=== PATIENT | female | born 1985 | race Caucasian/White ===

== ENCOUNTER 2016-03-08 18:54 | Emergency (ER) | payer OTHER ==
[~2016-03-08] VITALS: Ht 154.9 cm; Wt 64.7 kg
[~2016-03-08 18:54] MED LIST: ALUM5LIQ PO; RANI150 PO
[2016-03-08 19:16] VITALS: BP 115/80; PULSE 71; RESP 16; TEMP 98.3; O2SAT 99
[2016-03-08] MEDS ORDERED: PREN29TA PO (19:24)
[2016-03-08] MEDS ORDERED: AMOX500T PO (19:57)
--- NOTE | 2016-03-08 20:06 | PD ---
HPI Chief Complaint: Oral / Dental Pain or Problem Time Seen by Provider: 19:57 Travel History International Travel<30 days: No Contact w/Intl Traveler<30days: No Traveled to known affect area: No History of Present Illness HPI 30-year-old female presents to the emergency room for evaluation of right lower dental pain since this morning. Patient reports chronic history of dental problems dating back 5 years but has not ever been able to go to the dentist because of finances. He states this morning she had an abscess burst in her mouth which she spat out and then rinse her mouth out with hydrogen peroxide. Patient denies fever, chills, nausea, and vomiting. PFSH Past Medical History Medical History: Denies Significant Hx Immunizations Current: Yes Tetanus Vaccination: Unknown Influenza Vaccination: No ?: LMP: ULTRA SOUND 7WKS Past Surgical History Section: Yes (x 1) Social History Alcohol Use: No Tobacco Use: No Substance Use: No Allergies-Medications (Allergen,Severity, Reaction): Coded Allergies: No Known Allergies (Unverified , 03/08/16) Reported Meds & Prescriptions Reported Meds & Active Scripts Active Reported Plus Iron 29-1 mg ( Vit-Iron Carbonyl) 1 Tab Tab 1 Tab PO DAILY Review of Systems Except as stated in HPI: all other systems reviewed are Neg Physical Exam Narrative GENERAL: Well-nourished, well-developed female in no acute distress. Afebrile. Ambulatory. SKIN: Warm and dry. HEAD: Normocephalic. EYES: No scleral icterus. No injection or drainage. DENTAL: Severe decay throughout. There is moderate erythema surrounding tooth # 32. No obvious abscess. No noticeable drainage. No submental, submandibular, or buccal induration. No loose or chipped teeth. No malocclusion. NECK: Supple, trachea midline. No JVD or lymphadenopathy. CARDIOVASCULAR: Regular rate and rhythm without murmurs, gallops, or rubs. RESPIRATORY: Breath sounds equal bilaterally. No accessory muscle use. Data Data Last Documented VS Vital Signs Date Time Temp Pulse Resp B/P Pulse Ox O2 Delivery O2 Flow Rate FiO2 03/08/16 19:16 98.3 71 16 115/80 99 MDM Medical Decision Making Medical Screen Exam Complete: Yes Emergency Medical Condition: Yes Medical Record Reviewed: Yes Differential Diagnosis Dentalgia versus gingivitis versus dental decay Narrative Course 30-year-old 7 weeks female presents to the emergency room for evaluation of dental pain and drainage since this morning. Patient reports chronic dentalgia but has never been able to get to the dentist because of insurance reasons. Physical exam reveals severe decay throughout. There is moderate erythema surrounding tooth #32. No obvious abscess. No noticeable drainage. No submental, submandibular, or buccal induration. Vital signs stable. Patient will be discharged with prescription for amoxicillin, category B, and told to follow-up with her dentist or return for worsening symptoms. She understands and agrees to plan. Diagnosis Primary Impression: Dental abscess Referrals: Dentist Patient Instructions: Dental Abscess (ED), General Instructions Additional Instructions: Rest and drink plenty of fluids. [place] your teeth twice daily. Amoxicillin as directed, until gone. Follow-up with a dentist. Return to the emergency room for worsening symptoms. Med/Other Pt SpecificInfo: Prescription(s) given Scripts Amoxicillin 500 Mg [id number] Mg PO BID 7 Days Ref 0 Prov:Pino Carter MD 03/08/16 Disposition: 01 DISCHARGE HOME Condition: Stable Mildred Pinedo Mar 08, 2016 20:06
== END 2016-03-08 20:00 | disposition home or self-care (01) ==
LOC: PHEFT 18:54
DX: K04.7 Periapical abscess without sinus (principal)
CPT/HCPCS: 99282

== ENCOUNTER 2016-03-17 15:09 | Emergency (ER) | payer MEDICAID, OTHER ==
[~2016-03-17] VITALS: Ht 157.5 cm; Wt 65.0 kg
[~2016-03-17 15:09] MED LIST changes: -ALUM5LIQ PO; +AMOX500T PO; +PREN29TA PO; -RANI150 PO
[2016-03-17 15:16] VITALS: BP 104/61; PULSE 88; RESP 16; TEMP 98.6; O2SAT 99
== END 2016-03-17 18:01 | disposition left against medical advice (07) ==
LOC: PHED 15:09
DX: K08.89 Other specified disorders of teeth and supporting structures (principal); Z53.21 Procedure and treatment not carried out due to patient leaving prior to being seen by health care provider
CPT/HCPCS: 99281

== ENCOUNTER 2016-06-01 06:24 | Emergency (ER) | payer MEDICAID ==
[~2016-06-01] VITALS: Ht 157.5 cm; Wt 66.8 kg
[2016-06-01 06:32] VITALS: BP 133/90; PULSE 117; RESP 18; TEMP 98.9; O2SAT 95
[2016-06-01] MEDS ORDERED: ACETAMINOPHEN/HYDROcodone 325 MG/5 MG TAB PO ONE (07:00)
[2016-06-01] MEDS ORDERED: HYDR-3533 PO (07:07)
--- NOTE | 2016-06-01 07:08 | PD ---
HPI Chief Complaint: Pain: Acute or Chronic Time Seen by Provider: 06:52 Travel History International Travel<30 days: No Contact w/Intl Traveler<30days: No Traveled to known affect area: No History of Present Illness HPI 30 yo F arrives complaining of pain in the left hand. She has a history of carpal tunnel syndrome. She states pain is severe. She woke up with the pain. Passive and active range of motion is painful. Numbness is felt in the thumb , index, middle and ring fingers. She is 20 weeks . Reportedly she was treated with steroids previously which she stated was helpful. She also states wrist splint is helpful for about an hour or so. No recent injury. PFSH Past Medical History Diminished Hearing: No Musculoskeletal: Yes (LEFT CARPAL TUNNEL) Immunizations Current: Yes Influenza Vaccination: No ?: LMP: 12/2016 Past Surgical History Section: Yes (x 1) Social History Alcohol Use: No Tobacco Use: No Substance Use: No Allergies-Medications (Allergen,Severity, Reaction): Coded Allergies: No Known Allergies (Unverified , 03/17/16) Reported Meds & Prescriptions Reported Meds & Active Scripts Active Lortab (Hydrocodone-Acetaminophen) 5-325 Mg Tab 1-2 Tab PO Q6H PRN Reported Plus Iron 29-1 mg ( Vit-Iron Carbonyl) 1 Tab Tab 1 Tab PO DAILY Review of Systems General / Constitutional: No: Fever, Chills Musculoskeletal: Positive: Pain Neurologic: Positive: Paresthesia, Sensory Disturbance Physical Exam Narrative GENERAL: 30 yo F, WNWD, crying, moderate distress SKIN: Warm and dry. HEAD: Normocephalic. CARDIOVASCULAR: Regular. Tachycardia. RESPIRATORY: Breath sounds equal bilaterally. No accessory muscle use. GASTROINTESTINAL: Abdomen soft, non-tender, nondistended. MUSCULOSKELETAL: No gross deformity about the L forearm. 2+ radial pulse bilaterally. Diffuse marked tenderness present throughout the L hand and L DRUJ. Compartments about the forearm and hand are soft. BACK: Nontender without obvious deformity. No CVA tenderness. Data Data Last Documented VS Vital Signs Date Time Temp Pulse Resp B/P Pulse Ox O2 Delivery O2 Flow Rate FiO2 06/01/16 07:36 80 16 108/59 98 06/01/16 06:32 98.9 VS reviewed Orders Acetamin-Hydrocod 325-5 Mg ([place] 5-325 (06/01/16 07:00) ^ Splint (06/01/16 06:58) Splint Or Brace Apply/Monitor (06/01/16 07:20) Cockup Hand Splint (06/01/16 ) MDM Medical Decision Making Medical Screen Exam Complete: Yes Emergency Medical Condition: Yes Medical Record Reviewed: Yes Differential Diagnosis carpal tunnel syndrome, compartment syndrome, chronic pain, cellulitis, abscess Narrative Course In the case at hand, avoidance of steroids is considered preferable as she is 20 weeks . We'll provide a splint and pain control. Follow up with hand surgery. Follow up with obstetrics. Pt reassured. Contact information for local hand surgeons provided. Diagnosis Primary Impression: Carpal tunnel syndrome during Referrals: Aakash Orellana MD 2 days Tiffanie Khoury MD 2 days Additional Instructions: You have a choice when it comes to health care, and we are glad that you chose [facility]. Hopefully, we have met your expectations on today's visit. You are welcome to return to [facility] at any time, as we are committed to meeting the health care needs of our community. Med/Other Pt SpecificInfo: Prescription(s) given Scripts Hydrocodone-Acetaminophen (Lortab)5-325 Mg Tab1-2 Tab PO Q6H PRN (PAIN SCALE 6 TO 10) #15 TAB Ref 0 Prov:Abran Hunt MD 06/01/16 Disposition: 01 DISCHARGE HOME Condition: Stable Abran Hunt MD Jun 01, 2016 07:08
[2016-06-01 07:36] VITALS: BP 108/59
== END 2016-06-01 07:48 | disposition home or self-care (01) ==
LOC: PHED 06:24
DX: G56.02 Carpal tunnel syndrome, left upper limb (principal); Z3A.20 20 weeks gestation of pregnancy; Z34.82 Encounter for supervision of other normal pregnancy, second trimester
CPT/HCPCS: 99283; L3908

== ENCOUNTER 2016-11-02 23:30 | Emergency (ER) | payer MEDICAID ==
[~2016-11-02] VITALS: Ht 157.5 cm; Wt 60.5 kg
[~2016-11-02 23:30] MED LIST changes: -AMOX500T PO; +HYDR-3533 PO
[2016-11-02 23:45] VITALS: BP 136/65; PULSE 71; RESP 14; TEMP 98.1; O2SAT 99
[2016-11-03] MEDS ORDERED: LIDOCAINE HCL 1% 50 ML VIAL INFIL ONE
[2016-11-03] MEDS ORDERED: HYDR-3533 PO (00:09)
[2016-11-03] MEDS ORDERED: PENI500T PO (00:09)
--- NOTE | 2016-11-03 00:09 | PD ---
HPI Chief Complaint: Oral / Dental Pain or Problem Time Seen by Provider: 23:53 Travel History International Travel<30 days: No Contact w/Intl Traveler<30days: No Traveled to known affect area: No History of Present Illness HPI 31-year-old female here for evaluation of left upper/posterior dental pain. The patient reports having poor dentition and is scheduled to have all of her teeth removed at a dental clinic in 3 months. For last 2 days she has had increasing pain in her left upper/posterior molar area as well as some slight left facial swelling. No fevers or chills. No difficulty swallowing. Pain is moderate, constant, worse with palpation. PFSH Past Medical History Diabetes: Yes (GESTATIONAL) Patient Takes Glucophage: No Diminished Hearing: No Musculoskeletal: Yes (LEFT CARPAL TUNNEL) Immunizations Current: Yes ?: Not : 2 Para: 2 Past Surgical History Section: Yes (X2) Social History Alcohol Use: No Tobacco Use: Yes (STARTED SMOKING AGAIN "4 DAYS AGO" STATED 11/02/16 ) Substance Use: No Allergies-Medications (Allergen,Severity, Reaction): Coded Allergies: No Known Allergies (Unverified , 11/02/16) Reported Meds & Prescriptions Reported Meds & Active Scripts Active Lortab (Hydrocodone-Acetaminophen) 5-325 Mg Tab 1 Tab PO Q6H PRN Penicillin V Potassium 500 Mg Tab 500 Mg PO Q8H 10 Days Reported Plus Iron 29-1 mg ( Vit-Iron Carbonyl) 1 Tab Tab 1 Tab PO DAILY Review of Systems Except as stated in HPI: all other systems reviewed are Neg Physical Exam Narrative GENERAL: Well-developed, well-nourished, awake, alert, no apparent distress. SKIN: Focused skin assessment warm/dry. HEAD: Atraumatic. Normocephalic. EYES: Pupils equal and round. No scleral icterus. No injection or drainage. ENT: No nasal bleeding or discharge. Mucous membranes pink and moist. Poor dentition. Left upper/posterior molars are tender to palpation. No obvious fluctuance. No drooling or stridor. No trismus. NECK: Trachea midline. No JVD. No nuchal rigidity. CARDIOVASCULAR: Regular rate and rhythm. RESPIRATORY: No accessory muscle use. Clear to auscultation. Breath sounds equal bilaterally. MUSCULOSKELETAL: No obvious deformities. No clubbing. No cyanosis. No edema. NEUROLOGICAL: Awake and alert. No obvious cranial nerve deficits. Motor grossly within normal limits. Normal speech. PSYCHIATRIC: Appropriate mood and affect; insight and judgment normal. Data Data Last Documented VS Vital Signs Date Time Temp Pulse Resp B/P (MAP) Pulse Ox O2 Delivery O2 Flow Rate FiO2 11/02/16 23:45 98.1 71 14 136/65 (88) 99 Orders Orders Lidocaine 1% Inj (50 Ml) (Xylocaine 1% I (11/03/16 00:00) Penicillin V Potassium (Veetids) (11/03/16 00:15) Acetamin-Hydrocod 325-5 Mg ([place] 5-325 (11/03/16 00:15) MDM Medical Decision Making Medical Screen Exam Complete: Yes Emergency Medical Condition: Yes Medical Record Reviewed: Yes Differential Diagnosis Dental infection/dental decay Narrative Course Patient has very poor dentition with tenderness to her left upper/posterior molars. She has obvious decay to these teeth. A left greater palatine nerve block was performed with significant improvement in pain. See procedure note. Patient is overall very well-appearing and is stable for discharge home with outpatient follow-up with a dentist this week. She will be discharged home with a prescription for Pen-Vee K. She was informed on when to return to the emergency department. She verbalizes understanding and agreement with plan. Procedures Procedure Narrative Left greater palatine nerve block: 1 cc of 1% lidocaine was injected in the area of the left greater palatine nerve. Patient experienced significant improvement in pain. Tolerated well. No complications. Diagnosis Primary Impression: Dental infection Referrals: Dentist 1 week Additional Instructions: Follow-up with a dentist this week. Take antibody as prescribed. Return to the emergency department for worsening symptoms or any other concerns. Scripts Fluconazole (Diflucan) 150 Mg Tab 150 MG PO ONCE for Infection, #1 TAB 0 Refills Prov: Haresh Simpson MD 11/03/16 Hydrocodone-Acetaminophen (Lortab) 5-325 Mg Tab 1 TAB PO Q6H Y for PAIN, #10 TAB 0 Refills Prov: Haresh Simpson MD 11/03/16 Penicillin V Potassium (Penicillin V Potassium) 500 Mg Tab 500 MG PO Q8H for Infection for 10 Days, TAB 0 Refills Prov: Haresh Simpson MD 11/03/16 Disposition: 01 DISCHARGE HOME Condition: Stable Haresh Simpson MD Nov 03, 2016 00:09
[2016-11-03] MEDS ORDERED: PENICILLIN V POTASSIUM 500 MG TAB PO ONE (00:15)
[2016-11-03] MEDS ORDERED: ACETAMINOPHEN/HYDROcodone 325 MG/5 MG TAB PO ONE (00:15)
[2016-11-03] MEDS ORDERED: DIFL150T PO (00:20)
[2016-11-03 00:38] VITALS: BP 128/62
== END 2016-11-03 00:40 | disposition home or self-care (01) ==
LOC: PHED 23:30
DX: K04.7 Periapical abscess without sinus (principal); F17.210 Nicotine dependence, cigarettes, uncomplicated
CPT/HCPCS: 64400

== ENCOUNTER 2016-11-15 13:29 | Emergency (ER) | payer MEDICAID ==
[~2016-11-15 13:29] MED LIST changes: +DIFL150T PO; +PENI500T PO
[2016-11-15 13:40] VITALS: BP 107/78; PULSE 97; RESP 20; TEMP 98.5; O2SAT 97
--- NOTE | 2016-11-15 14:04 | PD ---
HPI Chief Complaint: Skin Problem Time Seen by Provider: 13:48 Travel History International Travel<30 days: No Contact w/Intl Traveler<30days: No Traveled to known affect area: No History of Present Illness HPI This 61-year-old female noted some swelling of the side of her . She had a done 2-1/2 weeks ago. It was a repeat by Dr. Mcgill. She has done well since then. She had a walnut size swelling on the lateral portion of the scar Last night. It went down scar is somewhat tender. There is been no vomiting. There is been no fever or chills. The discomfort she is having is aggravated by standing. She first noted a swollen after she lifted the dog PFS Past Medical History Diabetes: Yes (GESTATIONAL) Diminished Hearing: No Musculoskeletal: Yes (LEFT CARPAL TUNNEL) Immunizations Current: Yes : 2 Para: 2 Past Surgical History Section: Yes (X2) Social History Alcohol Use: No Tobacco Use: Yes (STARTED SMOKING AGAIN "4 DAYS AGO" STATED 11/02/16 ) Substance Use: No Allergies-Medications (Allergen,Severity, Reaction): Coded Allergies: No Known Allergies (Unverified , 11/15/16) Reported Meds & Prescriptions Reported Meds & Active Scripts Active Diflucan (Fluconazole) 150 Mg Tab 150 Mg PO ONCE Lortab (Hydrocodone-Acetaminophen) 5-325 Mg Tab 1 Tab PO Q6H PRN Penicillin V Potassium 500 Mg Tab 500 Mg PO Q8H 10 Days Reported Plus Iron 29-1 mg ( Vit-Iron Carbonyl) 1 Tab Tab 1 Tab PO DAILY Review of Systems General / Constitutional: No: Fever, Chills Eyes: No: Diploplia Cardiovascular: No: Chest Pain or Discomfort, Palpitations Respiratory: No: Cough, Shortness of Breath Gastrointestinal: No: Nausea, Vomiting Genitourinary: No: Urgency, Frequency Physical Exam Narrative GENERAL: Well-developed female SKIN: Focused skin assessment warm/dry. HEAD: Atraumatic. Normocephalic. EYES: Pupils equal and round. No scleral icterus. No injection or drainage. ENT: No nasal bleeding or discharge. Mucous membranes pink and moist. NECK: Trachea midline. No JVD. GASTROINTESTINAL: Abdomen soft, non-tender, nondistended. Hepatic and splenic margins not palpable. There is a transverse lower abdominal scar. The right side of the scar is somewhat tender to palpation. When I stood the patient up there was a slight bulge in this area is accentuated by coughing. MUSCULOSKELETAL: No obvious deformities. No clubbing. No cyanosis. No edema. NEUROLOGICAL: Awake and alert. No obvious cranial nerve deficits. Motor grossly within normal limits. Normal speech. PSYCHIATRIC: Appropriate mood and affect; insight and judgment normal. Data Data Last Documented VS Vital Signs Date Time Temp Pulse Resp B/P (MAP) Pulse Ox O2 Delivery O2 Flow Rate FiO2 11/15/16 13:40 98.5 97 20 107/78 (88) 97 MDM Medical Decision Making Medical Screen Exam Complete: Yes Emergency Medical Condition: Yes Medical Record Reviewed: Yes Differential Diagnosis Differential includes surgical wound infection, hernia Narrative Course I do not see any evidence of infection. She does have slight swelling at the site and it does bulge with coughing suggestive of a possible incisional hernia. It is certainly not incarcerated at this time. I recommended that she should follow-up with Dr. Patel Diagnosis Primary Impression: Incisional hernia Qualified Codes: K43.2 - Incisional hernia without obstruction or gangrene Additional Instructions: Follow-up with Dr. Mcgill Disposition: 01 DISCHARGE HOME Condition: Stable Heath Guillen MD Nov 15, 2016 14:04
== END 2016-11-15 14:29 | disposition home or self-care (01) ==
LOC: PHED 13:29
DX: O99.89 Other specified diseases and conditions complicating pregnancy, childbirth and the puerperium (principal); K43.2 Incisional hernia without obstruction or gangrene; F17.210 Nicotine dependence, cigarettes, uncomplicated; E11.9 Type 2 diabetes mellitus without complications
CPT/HCPCS: 99281

== ENCOUNTER 2016-12-02 15:01 | Emergency (ER) | payer SELFPAY ==
[~2016-12-02] VITALS: Ht 157.5 cm; Wt 57.0 kg
[~2016-12-02 15:01] MED LIST changes: -DIFL150T PO; -HYDR-3533 PO; -PENI500T PO
[2016-12-02 15:13] VITALS: BP 120/74; PULSE 83; RESP 17; TEMP 97.6; O2SAT 99
[2016-12-02] MEDS ORDERED: METR250T15 PO (15:34)
[2016-12-02] MEDS ORDERED: PENI500T PO (15:34)
[2016-12-02] MEDS ORDERED: IBUP800T23 PO (15:34)
[2016-12-02] MEDS ORDERED: CLIN1CAP6 PO (15:36)
[2016-12-02] MEDS ORDERED: HYDR-3534 PO (15:36)
--- NOTE | 2016-12-02 15:37 | PD ---
HPI Chief Complaint: Oral / Dental Pain or Problem Time Seen by Provider: 15:30 Travel History International Travel<30 days: No Contact w/Intl Traveler<30days: No Traveled to known affect area: No History of Present Illness HPI This 31-year-old female is complaining of dental pain. She's been having dental pain for about 10 days. She went to the dentist and was started on penicillin and Flagyl. She was having pain on both the right and the left side extractions. The right side of the jaw is feeling better but the left side is still having severe pain. she is having trouble getting an appointment with a dentist [facility] Past Medical History Diabetes: Yes (GESTATIONAL) Diminished Hearing: No Musculoskeletal: Yes (LEFT CARPAL TUNNEL) Immunizations Current: Yes ?: Not LMP: -2 MONTHS : 2 Para: 2 Past Surgical History Section: Yes (X2) Social History Alcohol Use: No Tobacco Use: Yes (STARTED SMOKING AGAIN "4 DAYS AGO" STATED 11/02/16 ) Substance Use: No Allergies-Medications (Allergen,Severity, Reaction): Coded Allergies: No Known Allergies (Unverified , 12/02/16) Reported Meds & Prescriptions Reported Meds & Active Scripts Active Reported Plus Iron 29-1 mg ( Vit-Iron Carbonyl) 1 Tab Tab 1 Tab PO DAILY Review of Systems General / Constitutional: No: Fever, Chills Eyes: No: Diploplia HENT: Positive: Dental Difficulties Cardiovascular: No: Chest Pain or Discomfort, Palpitations Respiratory: No: Cough, Shortness of Breath Genitourinary: No: Urgency, Frequency Musculoskeletal: No: Myalgias, Arthralgias Physical Exam Narrative GENERAL: Well-developed female SKIN: Focused skin assessment warm/dry. HEAD: Atraumatic. Normocephalic. EYES: Pupils equal and round. No scleral icterus. No injection or drainage. ENT: No nasal bleeding or discharge. Mucous membranes pink and moist. There are multiple carious teeth. The gum is quite tender. The jaw is not swollen there is no trismus NECK: Trachea midline. No JVD. . MUSCULOSKELETAL: No obvious deformities. No clubbing. No cyanosis. No edema. NEUROLOGICAL: Awake and alert. No obvious cranial nerve deficits. Motor grossly within normal limits. Normal speech. PSYCHIATRIC: Appropriate mood and affect; insight and judgment normal. Data Data Last Documented VS Vital Signs Date Time Temp Pulse Resp B/P (MAP) Pulse Ox O2 Delivery O2 Flow Rate FiO2 12/02/16 15:13 97.6 83 17 120/74 (89) 99 MDM Medical Decision Making Medical Screen Exam Complete: Yes Emergency Medical Condition: Yes Medical Record Reviewed: Yes Differential Diagnosis Differential includes dental abscess Narrative Course Patient is an abscess which is not improving with penicillin. clindamycin will be added. Diagnosis Primary Impression: Dental abscess Scripts Clindamycin (Clindamycin) 300 Mg Cap 600 MG PO Q8H for Infection for 10 Days, #60 CAP 0 Refills Prov: Heath Guillen MD 12/02/16 Hydrocodone-Acetaminophen (Lortab) 7.5-325 Mg Tab 1 TAB PO Q4H Y for PAIN, #20 TAB 0 Refills Prov: Heath Guillen MD 12/02/16 Disposition: 01 DISCHARGE HOME Condition: Stable Heath Guillen MD Dec 02, 2016 15:37
== END 2016-12-02 15:55 | disposition home or self-care (01) ==
LOC: PHED 15:01
DX: K04.7 Periapical abscess without sinus (principal)
CPT/HCPCS: 99284

== ENCOUNTER 2016-12-04 16:22 | Emergency (ER) | payer SELFPAY ==
[~2016-12-04] VITALS: Ht 157.5 cm; Wt 59.4 kg
[~2016-12-04 16:22] MED LIST changes: +CLIN1CAP6 PO; +HYDR-3534 PO; +IBUP800T23 PO; +METR250T15 PO; +PENI500T PO; -PREN29TA PO
[2016-12-04 16:26] VITALS: BP 137/61; PULSE 90; RESP 18; TEMP 98.9; O2SAT 98
--- NOTE | 2016-12-04 16:53 | PD ---
HPI Chief Complaint: Oral / Dental Pain or Problem Time Seen by Provider: 16:37 Travel History International Travel<30 days: No Contact w/Intl Traveler<30days: No Traveled to known affect area: No History of Present Illness HPI 31-year-old female complaining of right lower jaw pain since November 25, 2016. She went to a dentist who prescribed her PCN and Flagyl but she came to the ED December 02 for increasing pain and swelling. She was prescribed clindamycin and told to stop Flagyl but continue penicillin. She has pain located in her right molar and mandibular area with extension into the right side of the her neck. She says that the pain is severe and aching. Pain medications have not helped. She says that she has not had any release of pus, she is able to drink and eat normally, denies trouble breathing, fever, chills. PFSH Past Medical History Diabetes: Yes (GESTATIONAL) Diminished Hearing: No Musculoskeletal: Yes (LEFT CARPAL TUNNEL) Respiratory: Yes Immunizations Current: Yes ?: Not : 2 Para: 2 Past Surgical History Section: Yes (X2) Social History Alcohol Use: No Tobacco Use: Yes Substance Use: No Allergies-Medications (Allergen,Severity, Reaction): Coded Allergies: No Known Allergies (Unverified , 12/04/16) Reported Meds & Prescriptions Reported Meds & Active Scripts Active Hydrocodone-Acetaminophen 5-325 mg Tab 1 Tab PO Q4H PRN Phenergan (Promethazine HCl) 25 Mg Tablet 25 Mg PO Q6H PRN 3 Days Peridex Liq (Chlorhexidine Gluconate (Mouth) Liq) 0.12% Soln 15 Ml SWISH-SPIT BID 7 Days Clindamycin (Clindamycin HCl) 300 Mg Cap 600 Mg PO Q8H 10 Days Lortab (Hydrocodone-Acetaminophen) 7.5-325 Mg Tab 1 Tab PO Q4H PRN Review of Systems Except as stated in HPI: all other systems reviewed are Neg Physical Exam Narrative GENERAL: Well developed well nourished SKIN: Focused skin assessment warm/dry. HEAD: Atraumatic. Normocephalic. EYES: Pupils equal and round. No scleral icterus. No injection or drainage. ENT: No nasal bleeding or discharge. Mucous membranes pink and moist. Right lower jaw lateral aspect of molars with ulceration without exudate. Full range of motion of jaw with obvious pain. No clicks or pops noted. Exquisite tenderness to right mandible without fluctuance NECK: Trachea midline. No JVD. No lymphadenopathy but tenderness to right anterior neck CARDIOVASCULAR: Regular rate and rhythm. No murmur appreciated. RESPIRATORY: No accessory muscle use. Clear to auscultation. Breath sounds equal bilaterally. MUSCULOSKELETAL: No obvious deformities. No clubbing. No cyanosis. No edema. No CVA tenderness NEUROLOGICAL: Awake and alert. No obvious cranial nerve deficits. Motor grossly within normal limits. Normal speech. PSYCHIATRIC: Appropriate mood and affect; insight and judgment normal. Data Data Last Documented VS Vital Signs Date Time Temp Pulse Resp B/P (MAP) Pulse Ox O2 Delivery O2 Flow Rate FiO2 12/04/16 16:26 98.9 90 18 137/61 (86) [address] Facial Bones W/O Iv Cont (12/04/16 ) Complete Blood Count With Diff (12/04/16 16:55) Basic Metabolic Panel (Bmp) (12/04/16 16:55) Ed Urine Pregnancytest Poc (12/04/16 16:55) Westergren Sedimentation Rate (12/04/16 16:58) C-Reactive Protein (Crp) (12/04/16 16:58) Acetamin-Codeine 300-30 Mg (Tylenol-Code (12/04/16 17:30) Labs Laboratory Tests Test 12/04/16 17:10 White Blood Count 9.8 TH/MM3 Red Blood Count 4.26 MIL/MM3 Hemoglobin 11.6 GM/DL Hematocrit 35.4 % Mean Corpuscular Volume 83.1 FL Mean Corpuscular Hemoglobin 27.3 PG Mean Corpuscular Hemoglobin Concent 32.8 % Red Cell Distribution Width 18.1 % Platelet Count 244 TH/MM3 Mean Platelet Volume 8.1 FL Neutrophils (%) (Auto) 61.4 % Lymphocytes (%) (Auto) 29.6 % Monocytes (%) (Auto) 6.5 % Eosinophils (%) (Auto) 1.7 % Basophils (%) (Auto) 0.8 % Neutrophils # (Auto) 6.0 TH/MM3 Lymphocytes # (Auto) 2.9 TH/MM3 Monocytes # (Auto) 0.6 TH/MM3 Eosinophils # (Auto) 0.2 TH/MM3 Basophils # (Auto) 0.1 TH/MM3 CBC Comment DIFF FINAL Differential Comment Erythrocyte Sedimentation Rate 19 mm/hr Blood Urea Nitrogen 14 MG/DL Creatinine 0.89 MG/DL Random Glucose 83 MG/DL Calcium Level 9.1 MG/DL Sodium Level 135 MEQ/L Potassium Level 4.1 MEQ/L Chloride Level 102 MEQ/L Carbon Dioxide Level 25.6 MEQ/L Anion Gap 7 MEQ/L Estimat Glomerular Filtration Rate 75 ML/MIN C-Reactive Protein 1.82 MG/DL MDM Medical Decision Making Medical Screen Exam Complete: Yes Emergency Medical Condition: Yes Differential Diagnosis Right lower dental abscess versus odontalgia versus gingivitis versus osteomyelitis Narrative Course 31-year-old female here with right jaw pain since November 25. She been given multiple outpatient antibiotics to include penicillin, Flagyl and clindamycin. Denies fever, chills or any other systemic issues. Today she has taken Lortab and Motrin 800 mg without relief. Given Tylenol 3 here in the emergency department for her pain without much improvement. Physical exam: Area of non-fluctuance to right mandible both internal and external but exquisite tenderness. Labs: Stable Imaging study: No evidence of osteomyelitis. Consistent with abscess. I reiterated to continue antibiotics until complete and do not drink alcohol while on this medication. Use pain medications sparingly and with caution. Use mouthwash as prescribed. Phenergan given for nausea associated with narcotic pain mediation. Advised to return to dentist for further treatment. Return to the emergency department if pain worsens or persists or signs of worsening infection develop. Diagnosis Primary Impression: Dental abscess Referrals: Dentist Primary Care Physician Additional Instructions: Use mouthwash as prescribed. Do not drink alcohol while you're on antibiotics Take all antibiotics as prescribed. Follow-up with a dentist for further treatment and evaluation Follow-up with her primary care physician If pain worsens or recess return to the emergency department for further treatment Scripts Hydrocodone-Acetaminophen (Hydrocodone-Acetaminophen) 5-325 mg Tab 1 TAB PO Q4H Y for PAIN, #12 TAB 0 Refills Prov: Renetta Wheatley MD 12/04/16 Promethazine (Phenergan) 25 Mg Tablet 25 MG PO Q6H Y for NAUSEA OR VOMITING for 3 Days, #12 TAB 0 Refills Prov: Renetta Wheatley MD 12/04/16 Chlorhexidine Gluconate (Mouth) Liq (Peridex Liq) 0.12% Soln 15 ML SWISH-SPIT BID for 7 Days, #210 ML 0 Refills Prov: Renetta Wheatley MD 12/04/16 Disposition: 01 DISCHARGE HOME Condition: Stable Tiffanie Jerry Dec 04, 2016 16:53
[2016-12-04 17:17] LABS: BASOPHIL # 0.1 TH/MM3 (0-0.2); BASOPHIL % 0.8 % (0.0-2.0); EOSINOPHIL # 0.2 TH/MM3 (0-0.4); EOSINOPHIL % 1.7 % (0.0-4.0); HEMATOCRIT 35.4 % (35.0-46.0); HEMO FLAGS DIFF FINAL; LYMPH % 29.6 % (9.0-44.0); LYMPHOCYTE # 2.9 TH/MM3 (1.0-4.8); MEAN CELL VOLUME 83.1 FL (80.0-100.0); MEAN CORPUSCULAR HEMOGLOBIN 27.3 PG (27.0-34.0); MEAN CORPUSCULAR HGB CONC 32.8 % (32.0-36.0); MONO % 6.5 % (0.0-8.0); NEUT % 61.4 % (16.0-70.0); PLATELET COUNT 244 TH/MM3 (150-450); RED BLOOD COUNT 4.26 MIL/MM3 (4.00-5.30); RED CELL DISTRIBUTION WIDTH 18.1 % (11.6-17.2); WHITE BLOOD COUNT 9.8 TH/MM3 (4.0-11.0)
[2016-12-04 17:27] LABS: POTASSIUM 4.1 MEQ/L (3.5-5.1)
[2016-12-04 17:30] LABS: BICARBONATE 25.6 MEQ/L (21.0-32.0)
[2016-12-04] MEDS ORDERED: ACETAMINOPHEN/CODEINE 300 MG/30 MG TAB PO ONE (17:30)
--- NOTE | 2016-12-04 17:34 | RADRPT ---
EXAM DATE/TIME: 12/04/2016 17:12 [facility] COMPARISON: No previous studies available for comparison. INDICATIONS : Dental abscess, taking antibiotics. RADIATION DOSE: 29.86 CTDIvol (mGy) MEDICAL HISTORY : Respiratory disorder. SURGICAL HISTORY : None. ENCOUNTER: Initial ACUITY: 3 days PAIN SCORE: 10/10 LOCATION: Right jaw TECHNIQUE: Volumetric scanning of the facial bones was performed. Using automated exposure control and adjustme nt of the mA and/or kV according to patient size, radiation dose was kept as low as reasonably achiev able to obtain optimal diagnostic quality images. DICOM format image data is available electronicall y for review and comparison. FINDINGS: ORBITS: The orbital and infraorbital osseous structures are intact. The retroconal structures have a normal configuration. No radiopaque foreign bodies are seen. NASAL BONE: The nasal bone and maxillary spine are intact ZYGOMATIC ARCHES: Symmetric without evidence of fracture. SINUSES: The maxillary, ethmoid and frontal sinuses are intact. No air-fluid levels seen. NASAL CAVITY: The nasal septum is intact and midline. The lacrimal ducts are intact. SOFT TISSUES: There is significant streak artifact from dental fillings involving the bilateral upper and lower cheng th. Axial images demonstrate stranding of the subcutaneous fat and perimandibular soft tissues on the right without focal fluid collection to suggest abscess. No obvious bone abnormality is seen. INTRACRANIAL: No intracranial air seen. CRIBIFORM PLATE: Grossly intact. CONCLUSION: 1. Significant inflammatory stranding in the subcutaneous tissues in the right perimandibular region without focal fluid collection or bony destruction at this time. Jbo Ayon MD on December 04, 2016 at 17:30 Board Certified Radiologist. This report was verified electronically.
[2016-12-04] MEDS ORDERED: PERI0.126 SWISH-SPIT (17:46)
[2016-12-04] MEDS ORDERED: PROM25TA10 PO (18:10)
[2016-12-04] MEDS ORDERED: HYDR-3516 PO (18:10)
== END 2016-12-04 18:24 | disposition home or self-care (01) ==
LOC: PHEFT 16:22 → PHED 18:24
DX: K04.7 Periapical abscess without sinus (principal); Z72.0 Tobacco use
CPT/HCPCS: 70486; 80048; 84703; 85025; 85652; 86140